=== PATIENT | male | born 1965 | race Native Hawaiian/Other Pacific Islander ===

== ENCOUNTER 2016-11-12 20:42 | Emergency (ER) | payer BC ==
[~2016-11-12] VITALS: Ht 172.7 cm; Wt 117.0 kg
[~2016-11-12 20:42] MED LIST: PROBEN/COLCH1 TAB PO
[2016-11-12 21:17] LABS: PLATELET COUNT 193 K/uL (142-355)
[2016-11-12 21:20] LABS: POTASSIUM 3.8 mmol/L (3.6-5.2); SODIUM 135 mmol/L (136-145)
[2016-11-12 21:32] LABS: PARTIAL THROMBOPLASTIN TIME 23.2 SECONDS (24.5-33.6)
[2016-11-12 21:48] VITALS: BP 130/85; TEMP 98.3
== END 2016-11-12 21:48 | disposition home or self-care (01) ==
LOC: ED 20:42
DX: B96.81 Helicobacter pylori [H. pylori] as the cause of diseases classified elsewhere (principal); K29.70 Gastritis, unspecified, without bleeding; R07.89 Other chest pain
CPT/HCPCS: 36415; 80053; 82550; 84484; 85027; 85610; 85730; 86318; 99283

== ENCOUNTER 2017-02-18 23:10 | Emergency (ER) | payer BC ==
[~2017-02-18] VITALS: Ht 172.7 cm; Wt 113.4 kg
[2017-02-18 23:53] LABS: PLATELET COUNT 173 K/uL (142-355)
[2017-02-19 00:05] LABS: POTASSIUM 3.7 mmol/L (3.6-5.2); SODIUM 140 mmol/L (136-145)
[2017-02-19 00:41] VITALS: BP 135/82; TEMP 97.8
== END 2017-02-19 00:42 | disposition home or self-care (01) ==
LOC: ED 23:10
DX: M10.9 Gout, unspecified (principal)
CPT/HCPCS: 80053; 84550; 85027; 96372; 99283; J1885

== ENCOUNTER 2017-03-19 02:30 | Emergency (ER) | payer BC ==
[~2017-03-19] VITALS: Ht 172.7 cm; Wt 114.3 kg
[2017-03-19 02:49] VITALS: TEMP 97
[2017-03-19 03:25] LABS: PLATELET COUNT 178 K/uL (142-355)
[2017-03-19 03:34] LABS: POTASSIUM 4.1 mmol/L (3.6-5.2); SODIUM 139 mmol/L (136-145)
[2017-03-19 07:45] VITALS: BP 128/88
== END 2017-03-19 08:00 | disposition home or self-care (01) ==
LOC: ED 02:30
PROVIDERS: Specialist
DX: R07.89 Other chest pain (principal)
CPT/HCPCS: 36415; 80053; 82550; 84484; 85027; 85379; 86318; 93005; 96374; 99284; J1885

== ENCOUNTER 2017-03-25 21:13 | Emergency (ER) | payer BC ==
[~2017-03-25] VITALS: Ht 167.6 cm; Wt 113.4 kg
[2017-03-25 21:27] VITALS: TEMP 97.6
[2017-03-25 21:56] VITALS: BP 148/82
== END 2017-03-25 21:57 | disposition home or self-care (01) ==
LOC: ED 21:13
DX: M54.5 Low back pain (principal); M54.16 Radiculopathy, lumbar region; D17.1 Benign lipomatous neoplasm of skin and subcutaneous tissue of trunk
CPT/HCPCS: 96372; 99282; J1885

== ENCOUNTER 2017-04-14 09:45 | Emergency (ER) | payer BC ==
[~2017-04-14] VITALS: Ht 172.7 cm; Wt 113.4 kg
[2017-04-14 10:03] VITALS: TEMP 98.8
[2017-04-14 10:24] LABS: PLATELET COUNT 193 K/uL (142-355)
[2017-04-14 11:35] VITALS: BP 150/89
== END 2017-04-14 11:36 | disposition home or self-care (01) ==
LOC: ED 09:45
DX: M54.5 Low back pain (principal); M47.9 Spondylosis, unspecified
CPT/HCPCS: 80053; 81000; 85027; 99283

== ENCOUNTER 2017-05-11 11:12 | Emergency (ER) | payer BC ==
[~2017-05-11] VITALS: Ht 172.7 cm; Wt 113.4 kg
[2017-05-11 12:26] LABS: PLATELET COUNT 178 K/uL (142-355)
[2017-05-11 12:30] LABS: POTASSIUM 3.8 mmol/L (3.6-5.2); SODIUM 139 mmol/L (136-145)
[2017-05-11 13:49] VITALS: BP 146/84; TEMP 98.5
== END 2017-05-11 13:53 | disposition home or self-care (01) ==
LOC: ED 11:12
DX: M10.9 Gout, unspecified (principal)
CPT/HCPCS: 80053; 84550; 85027; 96372; 99283; J1885

== ENCOUNTER 2017-11-16 20:56 | Emergency (ER) | payer OTHER ==
[~2017-11-16] VITALS: Ht 167.6 cm; Wt 117.9 kg
[2017-11-16 22:20] VITALS: BP 152/94; TEMP 98.3
== END 2017-11-16 22:22 | disposition home or self-care (01) ==
LOC: ED 20:56
DX: M79.604 Pain in right leg (principal)
CPT/HCPCS: 99281

== ENCOUNTER 2018-08-04 21:40 | Emergency (ER) | payer OTHER ==
[~2018-08-04] VITALS: Ht 167.6 cm; Wt 129.3 kg
[2018-08-04 22:44] LABS: PLATELET COUNT 185 K/uL (142-355)
[2018-08-04 22:46] LABS: POTASSIUM 3.6 mmol/L (3.6-5.2)
[2018-08-05 02:19] VITALS: BP 145/88
== END 2018-08-05 02:20 | disposition home or self-care (01) ==
LOC: ED 21:40
DX: K57.90 Diverticulosis of intestine, part unspecified, without perforation or abscess without bleeding (principal)
CPT/HCPCS: 36415; 80053; 81000; 85027; 99283; Q9963

== ENCOUNTER 2018-10-07 19:31 | Emergency (ER) | payer OTHER ==
[~2018-10-07] VITALS: Ht 167.6 cm; Wt 129.3 kg
[2018-10-07 20:54] LABS: PLATELET COUNT 179 K/uL (142-355)
[2018-10-07 21:08] LABS: POTASSIUM 3.8 mmol/L (3.6-5.2)
[2018-10-07 21:46] VITALS: BP 144/93; TEMP 98.1
== END 2018-10-07 21:48 | disposition home or self-care (01) ==
LOC: ED 19:31
PROVIDERS: Internal Medicine
DX: I10 Essential (primary) hypertension (principal); R42 Dizziness and giddiness
CPT/HCPCS: 36415; 80053; 81000; 85027; 93005; 99283

== ENCOUNTER 2018-10-29 20:04 | Emergency (ER) | payer OTHER ==
[~2018-10-29] VITALS: Ht 167.6 cm; Wt 126.6 kg
[2018-10-29 21:42] LABS: PLATELET COUNT 163 K/uL (142-355)
[2018-10-29 21:49] LABS: POTASSIUM 3.7 mmol/L (3.6-5.2)
[2018-10-30 00:35] VITALS: BP 139/85; TEMP 98.1
== END 2018-10-30 00:38 | disposition home or self-care (01) ==
LOC: ED 20:04
PROVIDERS: Emergency Medicine
DX: K57.30 Diverticulosis of large intestine without perforation or abscess without bleeding (principal); R10.32 Left lower quadrant pain
CPT/HCPCS: 36415; 80053; 81000; 82150; 83690; 85027; 96374; 99284; J1885; Q9963

== ENCOUNTER 2018-12-10 07:12 | Emergency (ER) | payer OTHER ==
[~2018-12-10] VITALS: Ht 172.7 cm; Wt 122.0 kg
[2018-12-10 07:17] VITALS: TEMP 97.7
[2018-12-10] MEDS ORDERED: ATENOLOL100 M1 PO (07:27)
[2018-12-10] MEDS ORDERED: LISI20TA11 PO (07:28)
[2018-12-10] MEDS ORDERED: FISH OIL1 C10 PO (07:31)
[2018-12-10 07:52] LABS: PLATELET COUNT 183 K/uL (142-355)
[2018-12-10 07:58] LABS: POTASSIUM 3.9 mmol/L (3.6-5.2); SODIUM 144 mmol/L (136-145)
[2018-12-10 10:44] VITALS: BP 122/68
== END 2018-12-10 10:47 | disposition home or self-care (01) ==
LOC: ED 07:12
PROVIDERS: Internal Medicine
DX: R07.89 Other chest pain (principal); R00.1 Bradycardia, unspecified
CPT/HCPCS: 36415; 80053; 81000; 82550; 84484; 85027; 93005; 99284

== ENCOUNTER 2019-06-07 07:39 | Emergency (ER) | payer OTHER ==
[~2019-06-07] VITALS: Ht 172.7 cm; Wt 127.5 kg
[~2019-06-07 07:39] MED LIST changes: +ATENOLOL100 M1 PO; +FISH OIL1 C10 PO; +LISI20TA11 PO
[2019-06-07 07:44] VITALS: TEMP 98.1
[2019-06-07] MEDS ORDERED: ATEN50TA36 PO (07:53)
[2019-06-07] MEDS ORDERED: ZESTRIL40 MG PO (07:54)
[2019-06-07 09:05] VITALS: BP 142/89
== END 2019-06-07 09:05 | disposition home or self-care (01) ==
LOC: ED 07:39
DX: M54.5 Low back pain (principal); G89.29 Other chronic pain
CPT/HCPCS: 96372; 99283; J1885; J2360

== ENCOUNTER 2019-07-22 04:46 | Emergency (ER) | payer OTHER ==
[~2019-07-22] VITALS: Ht 172.7 cm; Wt 117.9 kg
[~2019-07-22 04:46] MED LIST changes: +ATEN50TA36 PO; +ZESTRIL40 MG PO
[2019-07-22 05:35] LABS: PLATELET COUNT 194 K/uL (142-355)
[2019-07-22 05:47] LABS: POTASSIUM 3.7 mmol/L (3.6-5.2)
[2019-07-22 06:30] VITALS: BP 164/98; TEMP 99.2
== END 2019-07-22 06:35 | disposition home or self-care (01) ==
LOC: ED 04:46
PROVIDERS: Emergency Medicine
DX: M10.9 Gout, unspecified (principal)
CPT/HCPCS: 80053; 84550; 85027; 96372; 99283; J2930

== ENCOUNTER 2019-10-01 12:02 | Emergency (ER) | payer OTHER ==
[~2019-10-01] VITALS: Ht 172.7 cm; Wt 120.2 kg
[2019-10-01 12:49] LABS: PLATELET COUNT 175 K/uL (142-355)
[2019-10-01 13:01] LABS: POTASSIUM 4.3 mmol/L (3.6-5.2); SODIUM 142 mmol/L (136-145)
[2019-10-01 13:06] LABS: PARTIAL THROMBOPLASTIN TIME 22.8 SECONDS (24.5-33.6)
[2019-10-01 15:45] VITALS: BP 126/81; TEMP 98
== END 2019-10-01 15:45 | disposition home or self-care (01) ==
LOC: ED 12:02
PROVIDERS: Student in an Organized Health Care Education/Training Program
DX: R07.89 Other chest pain (principal)
CPT/HCPCS: 36415; 80048; 83735; 83880; 84484; 85027; 85610; 85730; 93005; 99284; Q9963

== ENCOUNTER 2019-12-03 15:28 | Emergency (ER) | payer OTHER ==
[~2019-12-03] VITALS: Ht 172.7 cm; Wt 127.0 kg
[2019-12-03 15:46] VITALS: BP 140/90; TEMP 98
[2019-12-03 16:23] LABS: PLATELET COUNT 178 K/uL (142-355)
[2019-12-03 16:31] LABS: POTASSIUM 3.8 mmol/L (3.6-5.2); SODIUM 142 mmol/L (136-145)
[2019-12-03 16:42] LABS: PARTIAL THROMBOPLASTIN TIME 23.4 SECONDS (24.5-33.6)
== END 2019-12-03 17:30 | disposition home or self-care (01) ==
LOC: ED 15:28
PROVIDERS: Hospitalist
DX: R07.89 Other chest pain (principal); M10.9 Gout, unspecified
CPT/HCPCS: 80053; 82550; 83880; 84484; 85027; 85379; 85610; 85730; 93005; 96374; 99284; J1885

== ENCOUNTER 2020-05-19 17:40 | Observation (INO) | payer OTHER ==
[~2020-05-19] VITALS: Ht 172.7 cm; Wt 125.2 kg
[2020-05-19 17:52] VITALS: BP 137/93; TEMP 99.2
[2020-05-19 18:10] LABS: PLATELET COUNT 189 K/uL (142-355)
[2020-05-19 18:14] LABS: POTASSIUM 3.6 mmol/L (3.6-5.2); SODIUM 143 mmol/L (136-145)
[2020-05-19 18:30] VITALS: BP 117/70
[2020-05-19 18:51] LABS: PARTIAL THROMBOPLASTIN TIME 22.3 SECONDS (24.5-33.6)
[2020-05-19 21:01] VITALS: BP 98/53; TEMP 98.9
[2020-05-19 22:39] VITALS: BP 110/61; TEMP 97.8; Ht 172.7 cm; Wt 125.2 kg
[2020-05-19] MEDS ORDERED: ALLO100T22 PO (22:55)
[2020-05-19] MEDS ORDERED: CLON0.1T16 PO (22:56)
[2020-05-20 00:05] VITALS: BP 104/61; TEMP 97.8
[2020-05-20 03:57] VITALS: BP 98/43; TEMP 98.3
[2020-05-20 08:00] VITALS: BP 134/83; TEMP 97.9
[2020-05-20 12:00] VITALS: BP 133/85; TEMP 97.2
== END 2020-05-21 00:12 | disposition home or self-care (01) ==
LOC: ED 17:40 → MED/SURG 19:00
PROVIDERS: ADMIT Hospitalist
DX: R07.89 Other chest pain (principal); I10 Essential (primary) hypertension; M10.9 Gout, unspecified
CPT/HCPCS: 36415; 80053; 82550; 83880; 84484; 85027; 85610; 85730; 93005; 94760; 96372; 99220; 99283; G0378; J1650

== ENCOUNTER 2020-06-11 23:16 | Emergency (ER) | payer OTHER ==
[~2020-06-11] VITALS: Ht 172.7 cm; Wt 125.2 kg
[~2020-06-11 23:16] MED LIST changes: +ALLO100T22 PO; +CLON0.1T16 PO
[2020-06-12 01:05] VITALS: BP 123/63; TEMP 98.4
== END 2020-06-12 01:05 | disposition home or self-care (01) ==
LOC: ED 23:16
DX: I95.9 Hypotension, unspecified (principal)
CPT/HCPCS: 96374; 96375; 99282; 99284

== ENCOUNTER 2020-07-22 23:03 | Emergency (ER) | payer OTHER ==
[~2020-07-22] VITALS: Ht 172.7 cm; Wt 125.2 kg
[2020-07-22 23:12] VITALS: BP 132/72; TEMP 99.1
== END 2020-07-23 00:20 | disposition home or self-care (01) ==
LOC: ED 23:03
DX: M62.830 Muscle spasm of back (principal)
CPT/HCPCS: 96372; 99282; J1885

== ENCOUNTER 2020-11-09 22:23 | Observation (INO) | payer OTHER ==
[~2020-11-09] VITALS: Ht 172.7 cm; Wt 128.4 kg
[2020-11-09 22:23] VITALS: BP 185/122; TEMP 98.3
[2020-11-09 22:45] VITALS: BP 181/105
[2020-11-09 22:59] LABS: PLATELET COUNT 187 K/uL (142-355)
[2020-11-09 23:08] LABS: SODIUM 144 mmol/L (136-145)
[2020-11-09 23:16] VITALS: BP 160/94
[2020-11-09 23:45] VITALS: BP 164/91
[2020-11-10] VITALS (7 sets, daily range): BP systolic 119–162; BP diastolic 77–95; TEMP 97.4–98.2; Ht 172.7 cm; Wt 128.4 kg
== END 2020-11-10 17:08 | disposition home or self-care (01) ==
LOC: ED 22:23 → MED/SURG 11-10 00:15
PROVIDERS: ADMIT Hospitalist; ATTEND Internal Medicine Endocrinology, Diabetes & Metabolism
DX: R07.89 Other chest pain (principal); I10 Essential (primary) hypertension; K21.9 Gastro-esophageal reflux disease without esophagitis; E66.01 Morbid (severe) obesity due to excess calories
CPT/HCPCS: 36415; 80053; 82550; 82553; 82948; 84484; 85027; 85610; 85730; 87635; 93005; 96372; 96374; 99220; 99284; G0378; J2405; U0003

== ENCOUNTER 2020-12-15 17:17 | Emergency (ER) | payer OTHER ==
[~2020-12-15] VITALS: Ht 172.7 cm; Wt 128.4 kg
[2020-12-15 17:29] VITALS: BP 136/93; TEMP 98
== END 2020-12-15 17:59 | disposition home or self-care (01) ==
LOC: ED 17:17
DX: M10.9 Gout, unspecified (principal)
CPT/HCPCS: 96372; 99283; J1885; J2930

== ENCOUNTER 2021-02-17 17:46 | Emergency (ER) | payer OTHER ==
[~2021-02-17] VITALS: Ht 172.7 cm; Wt 128.4 kg
[2021-02-17 19:03] VITALS: BP 125/87; TEMP 98.5
== END 2021-02-17 19:03 | disposition home or self-care (01) ==
LOC: ED 17:46
DX: M54.5 Low back pain (principal); G89.29 Other chronic pain
CPT/HCPCS: 96372; 99283; J1885

== ENCOUNTER 2021-08-25 12:51 | Emergency (ER) | payer OTHER ==
[~2021-08-25] VITALS: Ht 172.7 cm; Wt 128.4 kg
[2021-08-25] MEDS ORDERED: AMLODIPINE BESYLATE PO (13:08)
[2021-08-25] MEDS ORDERED: ATEN50TA36 PO (13:08)
[2021-08-25] MEDS ORDERED: ZESTRIL40 MG PO (13:08)
[2021-08-25] MEDS ORDERED: ALLO100T22 PO (13:10)
[2021-08-25] MEDS ORDERED: CLONIDINE HYDR0.2 MG PO (13:10)
[2021-08-25 13:19] LABS: PLATELET COUNT 206 K/uL (142-355)
[2021-08-25 13:24] LABS: POTASSIUM 4.2 mmol/L (3.6-5.2)
[2021-08-25 13:36] LABS: PARTIAL THROMBOPLASTIN TIME 23.3 SECONDS (24.5-33.6)
[2021-08-25 13:52] VITALS: BP 104/72; TEMP 97.9
== END 2021-08-25 13:54 | disposition home or self-care (01) ==
LOC: ED 12:51
PROVIDERS: Hospitalist
DX: R07.89 Other chest pain (principal)
CPT/HCPCS: 36415; 80053; 82550; 83880; 84484; 85027; 85610; 85730; 93005; 96374; 99284; J1885

== ENCOUNTER 2021-09-12 10:21 | Emergency (ER) | payer OTHER ==
[~2021-09-12] VITALS: Ht 180.3 cm; Wt 128.4 kg
[~2021-09-12 10:21] MED LIST changes: +AMLODIPINE BESYLATE PO; +CLONIDINE HYDR0.2 MG PO
[2021-09-12 10:28] VITALS: BP 147/93; TEMP 97.7
== END 2021-09-12 12:52 | disposition home or self-care (01) ==
LOC: ED 10:21
DX: S29.012A Strain of muscle and tendon of back wall of thorax, initial encounter (principal); S20.221A Contusion of right back wall of thorax, initial encounter; W01.0XXA Fall on same level from slipping, tripping and stumbling without subsequent striking against object, initial encounter; Y92.098 Other place in other non-institutional residence as the place of occurrence of the external cause
CPT/HCPCS: 96372; 99283; J1885

== ENCOUNTER 2022-03-13 22:12 | Observation (INO) | payer OTHER ==
[~2022-03-13] VITALS: Ht 170.2 cm; Wt 133.4 kg
[2022-03-13 22:12] VITALS: BP 137/64; TEMP 98.6
[2022-03-13 23:57] LABS: POTASSIUM 4.2 mmol/L (3.6-5.2)
[2022-03-14 00:06] LABS: PARTIAL THROMBOPLASTIN TIME 23.6 SECONDS (24.5-33.6)
[2022-03-14 00:48] LABS: PLATELET COUNT 179 K/uL (142-355)
[2022-03-14 02:29] VITALS: BP 90/55; TEMP 98.1; Ht 170.2 cm; Wt 133.4 kg
[2022-03-14 04:00] VITALS: BP 90/50; TEMP 97.8
[2022-03-14] MEDS ORDERED: ATENOLOL100 M1 PO (06:38)
[2022-03-14 08:00] VITALS: BP 109/68; TEMP 97.4
[2022-03-14 12:00] VITALS: BP 116/77; TEMP 97.8
[2022-03-14 12:01] VITALS: BP 116/77; TEMP 97.6
[2022-03-14 14:00] VITALS: BP 114/67; TEMP 97.5
== END 2022-03-14 17:47 | disposition home or self-care (01) ==
LOC: ED 22:12 → MED/SURG 03-14 01:00
PROVIDERS: Internal Medicine; ADMIT Hospitalist; ATTEND Internal Medicine
DX: I95.89 Other hypotension (principal); N17.8 Other acute kidney failure; I10 Essential (primary) hypertension; K21.9 Gastro-esophageal reflux disease without esophagitis; M15.8 Other polyosteoarthritis; M54.59 Other low back pain; M10.9 Gout, unspecified; E66.01 Morbid (severe) obesity due to excess calories; Z68.42 Body mass index [BMI] 45.0-49.9, adult; R55 Syncope and collapse; R53.1 Weakness; E86.0 Dehydration
CPT/HCPCS: 80048; 80053; 80320; 81000; 82550; 83880; 84484; 85027; 85610; 85730; 87635; 93005; 94760; 96360; 96361; 96374; 99220; 99284; G0378; J2405; U0003

== ENCOUNTER 2022-07-01 18:07 | Emergency (ER) | payer OTHER ==
[~2022-07-01] VITALS: Ht 170.2 cm; Wt 133.4 kg
[2022-07-01 21:14] VITALS: BP 131/74; TEMP 98.9
== END 2022-07-01 21:17 | disposition home or self-care (01) ==
LOC: ED 18:07
DX: B34.9 Viral infection, unspecified (principal); Z20.822 Contact with and (suspected) exposure to COVID-19
CPT/HCPCS: 87502; 87635; 87651; 99283; U0003

== ENCOUNTER 2022-07-20 18:38 | Emergency (ER) | payer OTHER ==
[~2022-07-20] VITALS: Ht 172.7 cm; Wt 127.0 kg
[2022-07-20 19:04] LABS: PLATELET COUNT 217 K/uL (142-355)
[2022-07-20 19:17] LABS: POTASSIUM 4.3 mmol/L (3.6-5.2)
[2022-07-20 19:22] LABS: PARTIAL THROMBOPLASTIN TIME 25.3 SECONDS (24.5-33.6)
[2022-07-20 23:00] VITALS: BP 109/74; TEMP 98.5
== END 2022-07-20 23:00 | disposition home or self-care (01) ==
LOC: ED 18:38
PROVIDERS: Emergency Medicine
DX: R55 Syncope and collapse (principal); E86.0 Dehydration
CPT/HCPCS: 36415; 80053; 82550; 84484; 85027; 85610; 85730; 93005; 96360; 96361; 99284

== ENCOUNTER 2023-02-05 13:26 | Emergency (ER) | payer OTHER ==
[~2023-02-05] VITALS: Ht 172.7 cm; Wt 127.0 kg
[2023-02-05 13:30] VITALS: TEMP 99.7
[2023-02-05 13:56] LABS: PLATELET COUNT 173 K/uL (142-355)
[2023-02-05 14:08] LABS: POTASSIUM 4.2 mmol/L (3.6-5.2)
[2023-02-05 17:05] VITALS: BP 133/88
== END 2023-02-05 17:05 | disposition home or self-care (01) ==
LOC: ED 13:26
PROVIDERS: Internal Medicine
DX: K21.9 Gastro-esophageal reflux disease without esophagitis (principal); Z79.899 Other long term (current) drug therapy
CPT/HCPCS: 80053; 80307; 81002; 84484; 85027; 93005; 99284

== ENCOUNTER 2023-02-18 18:21 | Emergency (ER) | payer OTHER ==
[~2023-02-18] VITALS: Ht 172.7 cm; Wt 127.0 kg
[2023-02-18 18:39] VITALS: BP 112/68; TEMP 98.7
[2023-02-18 19:42] LABS: PLATELET COUNT 188 K/uL (142-355)
== END 2023-02-18 20:15 | disposition home or self-care (01) ==
LOC: ED 18:21
PROVIDERS: Emergency Medicine Emergency Medical Services
DX: R53.1 Weakness (principal); G44.89 Other headache syndrome; R05.8 Other specified cough; F17.210 Nicotine dependence, cigarettes, uncomplicated
CPT/HCPCS: 36415; 80053; 84484; 85027; 93005; 99283